=== PATIENT | female | born 1990 | race Caucasian/White ===

== ENCOUNTER → 2021-07-22 11:14 | Outpatient (CLI) | payer OTHER, SELFPAY ==
[2021-07-22 12:14] LABS: Add Manual Diff / Slide Review NO; Basophils Absolute Auto 0 /uL (0-100); Basophils Percent Auto 0.4 % (0-2); Eosinophils Absolute Auto 100 /uL (0-450); Eosinophils Percent Auto 0.9 % (2-4); Lymphocytes Absolute Auto 1600 /uL (1100-4500); Lymphocytes Percent Auto 19.1 % (25-40); Mean Corpuscular HGB Conc 34.1 % (30-36); Mean Corpuscular Hemoglobin 29.3 PG (26-34); Mean Corpuscular Volume 86.1 fL (80-100); Monocytes Absolute Auto 400 /uL (0-900); Neutrophils Absolute Auto 6400 /uL (1500-7000); Neutrophils Percent Auto 74.6 % (50-75); Platelet Count 231 X10^3/uL (150-400); Red Blood Cell Count 4.41 X10^6/uL (4.0-5.2); Red Cell Distribution Width 12.9 % (11.6-14.8); White Blood Cell Count 8.5 X10^3/uL (4.5-11.0)
[2021-07-22 12:18] LABS: Appearance Urine UA CLEAR; Bilirubin Urine UA NEGATIVE (NEGATIVE); Color Urine UA YELLOW; Glucose Urine UA NEGATIVE (Negative); Ketones Urine UA TRACE (NEGATIVE); Leukocyte Esterase Urine UA TRACE (NEGATIVE); Nitrite Urine UA NEGATIVE (Negative); Occult Blood Urine UA TRACE-INTACT (Negative); Protein Urine UA NEGATIVE (Negative); Urobilinogen Urine UA 0.2 E.U./dL (0.2)
[2021-07-22 14:01] LABS: pH Urine UA 6.5 (4.5-8.0)
[2021-07-22 14:03] LABS: Bacteria Urine Few (2-10); RBC Urine 0-1/HPF (0-5/HPF); Squamous Epithelial Cell Urine 10-30 /HPF (0-5/HPF); WBC Urine 1-5/HPF (0-5/HPF)
[2021-07-22 17:06] LABS: Hepatitis B Surface Antigen NEGATIVE s/c (NEGATIVE); Rubella Antibody IgG 83.8 IU/mL (>15)
[2021-07-22 17:20] LABS: HIV 1 & 2 Ab/Ag 4th Gen Combo NEGATIVE (NEGATIVE); Hep C Virus Ab w/Reflex Quant NEGATIVE s/c (NEGATIVE)
[2021-07-23 03:36] LABS: RPR Screen Non Reactive (Non Reactive)
[2021-07-23 08:08] LABS: Varicella IgG Antibody 961 index (Immune >165)
== END ==
PROVIDERS: Referring Provider Family Medicine; Visit Provider Family Medicine
DX: Z34.01 Encounter for supervision of normal first pregnancy, first trimester (principal)
CPT/HCPCS: 36415; 80055; 81003; 81015; 86787; 86803; 86850; 86900; 86901; 87086; 87389

== ENCOUNTER → 2021-07-29 16:57 | Outpatient (CLI) | payer OTHER, SELFPAY ==
[2021-07-29 17:18] LABS: Specimen Label NATERA SEND OUT KIT
== END ==
PROVIDERS: Referring Provider Family Medicine; Visit Provider Family Medicine
DX: Z3A.10 10 weeks gestation of pregnancy (principal)
CPT/HCPCS: 36415

== ENCOUNTER → 2021-08-19 11:53 | Outpatient (CLI) | payer OTHER, SELFPAY | PROVIDERS: Visit Provider Family Medicine | DX: R35.0 Frequency of micturition (principal) | CPT/HCPCS: 87086 ==

== ENCOUNTER → 2021-09-28 14:06 | Outpatient (CLI) | payer OTHER, SELFPAY ==
--- NOTE | 2021-09-28 14:07 | DI.US.S_ITS ---
PROCEDURE: US OB >= 14 WEEKS FETUS INDICATIONS: 20 WEEK ANATOMY SCAN OUTSIDE/PRIOR DATING DATA: Last menstrual period (LMP): 05/09/2022 LMP-based estimated date of delivery (PIYUSH): 02/13/2022. First dating scan (date and location): 09/28/2021. Estimated date of delivery (PIYUSH) from first dating scan: 02/04/2022. The calculations are made using the ultrasound PIYUSH of 02/04/2022. TECHNIQUE: Real-time scanning was performed of the fetus, with image documentation and biometric measurements. COMPARISON: None. FINDINGS: General: A single living intrauterine gestation is present. Presentation: Variable. Placenta: Placental position is posterior , without previa. Amniotic fluid index: 11.2 cm, normal range is 5-24 cm. heart rate: 147 beats per minute. Maternal cervical canal: 4. 6 cm long. Normal lower limit is 2.5 cm. biometrics: Biparietal diameter: 21 weeks 6 days Head circumference: 21 weeks Abdominal circumference: 22 weeks Femur length: 21 weeks 1 day Clinically estimated gestational age: 21 weeks 4 days Composite gestational age from present scan: 433 g Estimated weight and percentile: 97th percentile when compared to last menstrual period. Anatomic survey: Neuro: Ventricles are non-dilated at less than 10 mm. Cisterna magna is normal at 3-11 mm. Cerebellum is normal in size and morphology. Nuchal skin fold: Normal at less than 6 mm between 14-21 weeks gestational age. Face: Nose and lips, facial profile are normal. Spine: No evidence for spina bifida. Heart: 4-chambered heart is present, with normal ventricular outflow tracts. Diaphragm: Diaphragm is intact. Stomach: Left-sided stomach is present. Kidneys: Right kidney not well visualized. Normal left kidney. Cord: 3-vessel cord has orthotopic insertion. Bladder: Normal in size. Extremities: All 4 extremities identified. IMPRESSION: 1. 21 week 4 day single living IUP corresponding to ultrasound PIYUSH of 02/04/2022. 2. The right kidney is not well visualized; otherwise normal anatomic survey. Follow-up recommended. We strive to produce accurate, complete, and clear reports of imaging services. To assist us in improving patient care, this report was composed using standard report templates and voice recognition software. Therefore, it may contain abnormal punctuation, insertions and/or omissions. Occasional wrong-word or sound-alike substitutions may occur. Though we review the report and make efforts to correct it, we do recommend that the report be read carefully in proper context to recognize any text inaccuracies. Dictated by: Marquis FRAZIER Interpreted: Griffin Collins MD on 09/28/2021 at 15:44 Transcribed by: ELFEGO on 09/28/2021 at 15:46 Approved by: Griffin Collins M.D. on 10/09/2021 at 13:05
== END ==
PROVIDERS: Referring Provider Family Medicine; Visit Provider Family Medicine
DX: Z34.92 Encounter for supervision of normal pregnancy, unspecified, second trimester (principal); Z3A.21 21 weeks gestation of pregnancy
CPT/HCPCS: 76811

== ENCOUNTER → 2021-11-06 14:18 | Outpatient (CLI) | payer OTHER, SELFPAY ==
--- NOTE | 2021-11-06 14:19 | DI.US.S_ITS ---
PROCEDURE: US OB LIMITED INDICATIONS: Follow up us 09/28 OUTSIDE/PRIOR DATING DATA: Last menstrual period (LMP): 05/09/2022. LMP-based estimated date of delivery (PIYUSH): 02/13/2022 First dating scan (date and location): 21 weeks 4 days Estimated date of delivery (PIYUSH) from first dating scan: 09/28/2021. The calculations are made using the ultrasound PIYUSH of 02/04/2022. TECHNIQUE: Real-time scanning was performed of the fetus, with image documentation. COMPARISON: None. FINDINGS: A single living intrauterine gestation is present. Presentation: Cephalic. Placenta: Placental position is posterior/right, without previa. Amniotic fluid index: 14.3 cm, normal range is 5-24 cm. heart rate: 143 beats per minute. Maternal cervical canal: 4 cm long. Normal lower limit is 2.5 cm. Estimated gestational age from initial scan: 27 weeks 1 day. Anatomic survey: Neuro: Ventricles are non-dilated at less than 10 mm. Cisterna magna is normal at 3-11 mm. Cerebellum is normal in size and morphology. Kidneys: Right kidney is visualized and normal. IMPRESSION: 1. Single live intrauterine with an estimated gestational age of 27 weeks 1 day from initial scan. 2. Completion of anatomy scan with normal right kidney identified. Dictated by: Adam Barron M.D. on 11/06/2021 at 15:44 Approved by: Adam Barron M.D. on 11/06/2021 at 15:48
== END ==
PROVIDERS: Referring Provider Family Medicine; Visit Provider Family Medicine
DX: Z36.2 Encounter for other antenatal screening follow-up (principal); Z3A.27 27 weeks gestation of pregnancy
CPT/HCPCS: 76815

== ENCOUNTER → 2021-11-13 14:38 | Outpatient (CLI) | payer OTHER, SELFPAY ==
[2021-11-13 16:15] LABS: GTT (PREG) 1 Hour PP 50gm Dose 106 mg/dL (76-139)
== END ==
PROVIDERS: Referring Provider Family Medicine; Visit Provider Family Medicine
DX: Z34.92 Encounter for supervision of normal pregnancy, unspecified, second trimester (principal); Z3A.26 26 weeks gestation of pregnancy
CPT/HCPCS: 36415; 82950

== ENCOUNTER → 2022-01-22 15:01 | Outpatient (CLI) | payer OTHER, SELFPAY ==
[2022-01-23 14:23] LABS: Strep Grp B PCR NEG for Grp B Strep
== END ==
PROVIDERS: Visit Provider Family Medicine
DX: Z34.93 Encounter for supervision of normal pregnancy, unspecified, third trimester (principal); Z3A.36 36 weeks gestation of pregnancy
CPT/HCPCS: 87653

== ENCOUNTER 2022-02-03 18:53 | Inpatient (IN) | payer OTHER, SELFPAY ==
[2022-02-03 19:15] VITALS: BP 120/78
[2022-02-03 20:55] LABS: COVID19 -Nasal RAPID Negative (Negative)
--- NOTE | 2022-02-03 21:15 | PM.OBHP.IH.1 ---
OB HPI Date/Time Date of admission: 02/03/22 Date Patient Seen: 02/04/22 Time Patient Seen: 08:15 History of Present Condition Chief complaint: obs PIYUSH Calculator Estimated Delivery Date Method Current WG Current Estimate 02/13/22 Manual 38w 5d Final PIYUSH - KOBE Other Estimates 02/13/22 LMP (Certain) 38w 5d 02/13/22 Ultrasound #1 38w 5d Estimated Gestational Age (weeks): 38w4d : 1 Para: 0 Narrative: Pt is a 31yo at 38w4d who presented with leaking fluid. The pt reports feeling a gush of fluid around 4:30pm. She started having increasingly uncomfortable contractions shortly after. She has been having intermittent vaginal spotting. She continues to feel her baby move regularly. The pts has been uncomplicated. care: good care, initiated at week # (10) and pounds weight gain (35) Dating criteria OB: LMP confirmed by 1st trimester US Ultrasounds: normal 1st trimester US and normal mid trimester US Obstetrical complications: none Medical complications OB: none Preadmission Labs Last OB Lab Results: Blood Type O Positive 02/03/22 19:55 Antibody Screen Negative 02/03/22 19:55 Hematocrit 35.9 % (36-46) L 02/03/22 19:55 Hemoglobin 12.3 g/dL (12.0-16.0) 02/03/22 19:55 Hepatitis B Surface Antigen Negative s/c (NEGATIVE) 07/22/21 11:46 Hepatitis C Antibody Negative s/c (NEGATIVE) 07/22/21 11:46 Rubella Antibody 83.8 IU/mL (>15) 07/22/21 11:46 Varicella-Zoster IgG Antibody 961 index (Immune >165) 07/22/21 11:46 Glucose 1 Hour 106 mg/dL (76-139) 11/13/21 14:41 Group B Streptococcus (PCR) Neg for grp b strep 01/22/22 15:01 Evaluation Evaluation Baseline heart rate: 135 Variability: Moderate (11-25) monitor accelerations: Present Monitor Decelerations: Absent [facility] Medical History (Updated 01/22/22 @ 17:06 by Lauren Sharma MD) Acne (~2018) Anxiety (~2015) History of painful menstruation (~2000) Inflammatory bowel diseases (IBD) (~2017) Irritable bowel syndrome (~2017) Mass of axillary tail of right breast (~2017) Surgical History (Updated 08/18/21 @ 18:57 by Lucila Granados) Breast cyst (~2018) [place] teeth extracted Family History (Updated 08/18/21 @ 18:58 by Lucila Granados) Mother Cervical incompetence affecting management of mother, antepartum History of cervical cerclage H/O: hysterectomy Hypothyroid Father Myocardial infarction Arrhythmia Heart disease Grandmother No problems noted. Grandfather Heart disease Stroke Grandmother No problems noted. Grandfather Obesity Hyperlipidemia Heart disease Social History marital status: number of children: 0 household members: spouse lives independently: Yes caregiver/support person: No housing: house pets and animals: No education level: master's degree ([employer] occupational status: unemployed current occupational exposures/hazards: No tiffanie/oriental orthodox: Scientologist special tiffanie needs: No seatbelt use: always do you feel safe at home: Yes Smoking Status: Never smoker second hand exposure: No alcohol intake: former (Pre-: very rare, social occasions only, small amounts. ) substance use type: does not use during the past year weight has: remained stable well-balanced diet: daily or most days (95% Plant-based diet, discussed protein goals. ) daily servings fruits/ve-4 caffeine: No Type(s) of exercise: walking (Hiking), bicycling (Spinning bike 2/x week x 1 hour), regular exercise (YouTube videos) and yoga frequency: 3-4 times per week duration: 45-60 minutes/day Meds Home Medications and Allergies Home Medications Medication Instructions Recorded Confirmed Type cholecalciferol (vitamin D3) 25 25 mcg PO DAILY 07/07/21 02/03/22 History mcg (1,000 unit) capsule ferrous sulfate 325 mg (65 mg 325 mg PO DAILY 07/07/21 02/03/22 History iron) tablet (FeroSul) folic acid 400 mcg tablet 0.4 mg PO DAILY 07/07/21 02/03/22 History mecobalamin (vitamin B12) 5,000 See Rx Instructions .Route .COMPLEX 07/07/21 02/03/22 History mcg disintegrating tablet prenat.vits,daisy,stl-rlkb-vyewf 1 tab PO DAILY 07/07/21 02/03/22 History zinc gluconate 50 mg tablet 50 mg PO DAILY 07/07/21 02/03/22 History double electric breast pump and #1 ea 11/13/21 02/03/22 Rx supplies Allergies Allergy/AdvReac Type Severity Reaction Status Date / Time No Known Drug Allergies Allergy Verified 02/03/22 14:31 OB Exam Narrative Exam Narrative: Gen: NAD, sitting comfortably in bed, appears well CV: RRR, no murmurs Resp: clear to auscultation bilaterally Abd: soft, nontender, gravid Ext: no edema Objective Labs Result Diagrams: 02/03/22 19:55 Labs: Laboratory Results - last 24 hr 02/03/22 19:55 SARS-CoV-2 (PCR) Negative Assessment and Plan Assessment and Plan Assessment and Plan narrative: 31yo at 38w4d here with SROM. Uncomplicated . GBS negative, Rh positive. - Expectant management, anticipate - FHT reassuring - Epidural for pain control when desired - GBS negative, no prophylaxis indicated
[2022-02-03 21:19] LABS: Add Manual Diff / Slide Review NO; Basophils Absolute Auto 100 /uL (0-100); Basophils Percent Auto 0.3 % (0-2); Eosinophils Absolute Auto 0 /uL (0-450); Eosinophils Percent Auto 0.1 % (2-4); Hematocrit 35.9 % (36-46); Hemoglobin 12.3 g/dL (12.0-16.0); Lymphocytes Absolute Auto 1600 /uL (1100-4500); Lymphocytes Percent Auto 11.1 % (25-40); Mean Corpuscular HGB Conc 34.4 % (30-36); Mean Corpuscular Hemoglobin 30.8 PG (26-34); Mean Corpuscular Volume 89.6 fL (80-100); Monocytes Absolute Auto 600 /uL (0-900); Monocytes Percent Auto 4.2 % (3-14); Neutrophils Absolute Auto 12500 /uL (1500-7000); Neutrophils Percent Auto 84.3 % (50-75); Platelet Count 153 X10^3/uL (150-400); Red Blood Cell Count 4.01 X10^6/uL (4.0-5.2); Red Cell Distribution Width 13.3 % (11.6-14.8); White Blood Cell Count 14.9 X10^3/uL (4.5-11.0)
[2022-02-04] MEDS: fentaNYL 100 MCG/2 ML INJ 50 MCG IV ×2 (00:33→02:00)
[2022-02-04] MEDS: LACTATED RINGERS 1,000 ML 100 ML IV ×3 (03:30→17:03)
[2022-02-04] MEDS: FENT 2MCG/ML BUPIV 0.125% EPI 200 MCG/100 ML PLAST..BAG 12 MCG EPIDURAL ×2 (04:15→10:51)
[2022-02-04] MEDS: OXYTOCIN PREMIX 30 UNIT/500 ML PLAST..BAG IV (10:45)
--- NOTE | 2022-02-04 11:29 | PM.OBPNLAB ---
Date/Time Date Patient Seen: 02/04/22 Time Patient Seen: 08:20 Pain Control Pain control: epidural Pelvic Exam Dilation (cm): 9 Effacement (%): 100 station: 0 Amniotic membrane status: Ruptured Contractions Contraction frequency (min): 5 Status status: Category l Heart Rate Baseline: 145 Monitor Accelerations: Absent Monitor Decelerations: Absent Monitor Variability: Moderate Assessment and Plan Comments: 31yo at 38w5d here with SROM in active labor. Pt making good progress, now 9cm. No additional intervention at this time. Anticipate . FHT reassuring.
--- NOTE | 2022-02-04 13:51 | PM.PREOP ---
Pre-operative Note COVID-19 COVID-19 status: Negative Result date/Date tested (Pos, Neg/Pending): 02/03/22 Interval Note History & Physical reviewed/Exam performed by Physician: Yes Changes to H&P: No
--- NOTE | 2022-02-04 13:51 | PM.OBPNLAB ---
Date/Time Date Patient Seen: 02/04/22 Time Patient Seen: 13:51 Pain Control Pain control: epidural Pelvic Exam Dilation (cm): 10 Effacement (%): 100 station: +2 Amniotic membrane status: Ruptured Contractions Contraction frequency (min): 3 Status status: Category ll Heart Rate Baseline: 150 Monitor Accelerations: Absent Monitor Decelerations: Late Monitor Variability: Minimal Assessment and Plan Comments: 31yo at 38w5d here with SROM in active labor. Pt progressed to complete, and pushed for over 3 hours. There was initially descent of the fetus, but then limited movement past +1 position. The fetus was in OP position. Pitocin was initiated due to spacing of contractions, and titrated to a maximum of 6mU. The pt was able to bring the fetus to +2 position. Due to maternal exhaustion and nonreassuring FHT with persistent minimal variability, the decision was made to proceed with vacuum-assisted vaginal delivery. Patient was evaluated and noted to have adequate pain control. Patient counseled on risks/benefits/alternatives of vacuum assisted delivery. Risks were discussed and they included but were not limited to a need for an episiotomy, pressure foster on the baby, lacerations to the baby's scalp/face, serious damage including skull fracture, the need to proceed with an abdominal procedure, , paralysis of the baby's arms and/or legs, neurological impairment of the baby. Alternatives would include CS or further observation depending on status. Questions were answered and the patient verbalized an understanding and decided to proceed. Cervix completely dilated and maternal bladder emptied. Maternal pelvis was noted to be adequate. Vertex presentation in the OP position and +2 station. Moulding present, Caput not present Vacuum cup of the Kiwi OmniCup applied to the flexion point without difficulty and during contractions, pressure applied between 400-600 mmHg as indicated in the green zone of the pressure gauge. Initially with vacuum use, there was good descent to +3 position. There were then 2 pop-offs. The vacuum did lose suction multiple times. The fetus was noted to have significant caput forming. There was limited descent. A third pop-off occurred, and due to this with no significant bony descent beyond +3 station the decision was made to proceed with primary . The vacuum was applied for a total of 33 minutes. The risks of were discussed with the patient. Risks include but are not limited to bleeding/hemorrhage, infection, injury to other organs such as the bowel and bladder, and injury to fetus. The pt agreed to blood transfusion if medically necessary. The consent was signed and placed in the chart. She will receive 2g Ancef and 500mg Azithromycin prior to delivery. SCDs will be placed.
[2022-02-04] MEDS: AZITHROMYCIN 500 MG in DEXTROSE 5% IN WATER 250 ML 250 MG IV (14:45)
[2022-02-04] MEDS: CEFAZOLIN 2 GM/100 ML PREMIX 100 ML IV (15:00)
[2022-02-04 15:49] VITALS: BP 130/70; PULSE 81; RESP 16; TEMP 36.2; O2SAT 98
[2022-02-04 15:55] VITALS: BP 130/90; PULSE 90; RESP 16; O2SAT 99
--- NOTE | 2022-02-04 15:58 | P.OP_ITS ---
Operative Date/Time/Diagnoses Date of procedure: 02/04/22 Time of procedure: 14:45 Pre-op diagnosis: 38w5d gestation GBS negative Rh positive Prolonged second stage of labor Failed vacuum-assisted vaginal delivery Failure to descend Nonreassuring heart tones Post-op diagnosis: same Procedure & Clinicians Procedure: Primary Same procedure as scheduled: Yes Indications: Failure to descend, nonreassuring heart tones, failed vacuum-assisted vaginal delivery Surgeon: Lauren Sharma Click Yes if Unassisted: No Missile Control Pilot: Isaura Ly Anesthesia Type: Epidural Operative Notes Findings: Normal uterus, ovaries, and tubes Closure Type: primary Specimen(s): cord blood and cord pH Intraoperative meds administered: Ketorolac and Pitocin Applied: Catheter Estimated Blood Loss (mL): 450 Procedure in detail: The patient was taken to the operating room where epidural was bolused was placed. She was then prepared and draped in the normal sterile fashion in the dorsal supine position with a leftward tilt. Anesthesia was tested and found to be adequate. A Pfannensteil skin incision was then made with the scalpel and carried through to the underlying layer of fascia with the scalpel. The fascia was incised in the midline and the incision extended laterally with the Sommers scissors. The superior aspect of the fascial incision was then grasped with Eliezer clamps, elevated with the help of the personal injury legal assistant, and the underlying rectus muscles dissected off bluntly and sharply where needed. Attention was then turned to the inferior aspect of the incision which, in a similar fashion, was grasped, tented up with Eliezer clamps, and the rectus muscle dissected off bluntly and sharply with Sommers scissors. The rectus muscles were then in the midline, and the peritoneum was identified and entered bluntly. The peritoneal incision was then extended with good visualization of the bladder. Retraction was provided by the personal injury legal assistant. The bladder blade was then inserted and the vesicouterine peritoneum identified, grasped with pick-ups and entered sharply with the Metzenbaum scissors. The incision was then extended laterally and the bladder flap created digitally. The bladder blade was then reinserted and the lower uterine segment incised in a transverse fashion with the scalpel, with the personal injury legal assistant providing suction. The uterine incision was then extended superolaterally by pulling superolaterally on both sides. The bladder blade was removed the infant's head was flexed out of OP position and delivered atraumatically, with fundal pressure by the personal injury legal assistant. The nose and mouth were suctioned with bulb suction and the cord was clamped and cut. Delayed cord clamping was not completed as the baby had no spontaneous respirations. The infant was handed off to the waiting nursing staff. Cord blood was collected for Rh status. Cord gases were sent. The placenta was then delivered with gentle cord traction. The uterus was then exteriorized and cleared of all clots and debris. The uterine incision was repaired with O Vicryl in a running, locked fashion. A small extension was noted and repaired down the right side of the incision. A second layer of the same suture was used to obtain excellent hemostasis. The uterus was returned to the abdomen. The gutters were cleared of all clots. Hysterotomy was investigated and found to be hemostatic. Bladder flap was repaired with 2-O Chromic. The peritoneum was closed with 3-O Vicryl. The fascia was reapproximated with O-Vicryl in a running fashion. The subcutaneous tissue was reapproximated with 3-O Vicryl. The skin was closed with 4-O Vicryl. The personal injury legal assistant helped with retraction during closures. SPONGE AND NEEDLE COUNTS: Correct x3. DRESSING: Aquacel ANTICOAGULATION: SCDs applied prior to Surgery Preop antibiotics given (see MAR). The patient was taken to recovery room having tolerated procedure well. Complications: none [place] Baby 1: Infant Gender: Male Presentation: vertex Position: Right Occiput Posterior Placental Delivery Description: Spontaneous Cord Vessel Description: 3 Vessels and Nuchal Cord score (1 min): 1 (given only for HR) score (5 min): 6 score (10 min): 9 weight: 8 lb 0.468 oz Narrative: without spontaneous respirations after delivery, no tone, pale. HR initially in the 40s. Responded well to PPV followed by CPAP. Post-operative Condition: stable Disposition: PACU Aftercare: routine postop
--- NOTE | 2022-02-04 16:05 | SUR.OPER ---
Viable baby boy born at 1458. Resuscitation needed, successful. Cord blood and placenta given to OB RN.
--- NOTE | 2022-02-04 16:06 | SUR.OPER ---
Supine on Padded OR bed, head on pillow, safety belt at thigh, arms secured on padded arm boards at <90 degrees abduction. Bump under right buttock. Legs uncrossed with pillow under knees, gel pad to heels, tape over blanket to lower legs.
[2022-02-04 16:10] VITALS: BP 136/70; PULSE 80; RESP 16; TEMP 36.8; O2SAT 98
[2022-02-04] MEDS: MORPHINE 2 MG/ML INJ IV (16:49)
[2022-02-04] MEDS: OXYCODONE IR 5 MG TABLET PO (20:38)
[2022-02-04] MEDS: KETOROLAC 30 MG/ML VIAL IV (22:40)
[2022-02-05] MEDS: OXYCODONE IR 5 MG TABLET PO ×3 (00:50→08:17)
[2022-02-05] MEDS: KETOROLAC 30 MG/ML VIAL IV (06:12)
[2022-02-05 06:31] LABS: Add Manual Diff / Slide Review NO; Basophils Absolute Auto 0 /uL (0-100); Basophils Percent Auto 0.2 % (0-2); Eosinophils Absolute Auto 0 /uL (0-450); Eosinophils Percent Auto 0.1 % (2-4); Hematocrit 34.4 % (36-46); Hemoglobin 11.7 g/dL (12.0-16.0); Lymphocytes Absolute Auto 2300 /uL (1100-4500); Mean Corpuscular Hemoglobin 30.6 PG (26-34); Mean Corpuscular Volume 90.2 fL (80-100); Monocytes Absolute Auto 1000 /uL (0-900); Neutrophils Absolute Auto 16000 /uL (1500-7000); Neutrophils Percent Auto 82.7 % (50-75); Platelet Count 136 X10^3/uL (150-400); Red Blood Cell Count 3.81 X10^6/uL (4.0-5.2); Red Cell Distribution Width 13.7 % (11.6-14.8); White Blood Cell Count 19.3 X10^3/uL (4.5-11.0)
--- NOTE | 2022-02-05 08:21 | P.PNOB_ITS ---
Subjective - OB Subjective Patient comments: incisional pain baby status: doing well feeding status: exclusively breast feeding Date Patient Seen: 02/05/22 Time Patient Seen: 08:00 Interval history: Patient is postoperative day 1 primary low-transverse section for sec ond-stage arrest. Patient is having incisional pain but denies headaches, scotomata, epigastric pain. No nausea. Exam Vital Signs (past 8 hours): Blood pressure 122/68, pulse 75, temperature 36.4? Oxygen Delivery Method Room Air Narrative Exam Narrative: Abdomen is soft, nontender. Uterus is firm, at U, appropriately tender. Dressing is clean, dry, intact. Mild lochia. Extremities without edema and nontender. Objective Labs Result Diagrams: 02/05/22 06:25 Labs: Laboratory Results - last 24 hr 02/05/22 06:25 WBC 19.3 H RBC 3.81 L Hgb 11.7 L Hct 34.4 L MCV 90.2 MCH 30.6 MCHC 34.0 RDW 13.7 Plt Count 136 L Neut % (Auto) 82.7 H Lymph % (Auto) 12.0 L Mclennan % (Auto) 5.0 Eos % (Auto) 0.1 L Baso % (Auto) 0.2 Neut # (Auto) 32002 H Lymph # (Auto) 2300 Mclennan # (Auto) 1000 H Eos # (Auto) 0 Baso # (Auto) 0 Assessment & Plan Plan day: 1 plan OB: routine postop care Time Spent With Patient Time: Total time spent is greater than 50% in coordination of care (as documented) at patient's floor/unit and/or counseling patient: Time with patient: less than 15 minutes
[2022-02-05] MEDS: OXYCODONE IR 10 MG TABLET PO ×2 (14:00→20:13)
[2022-02-05] MEDS: IBUPROFEN 600 MG TABLET PO ×2 (15:07→20:14)
--- NOTE | 2022-02-05 15:46 | P.PNOB_ITS ---
Subjective - OB Subjective Patient comments: incisional pain baby status: doing well feeding status: exclusively breast feeding Date Patient Seen: 02/05/22 Time Patient Seen: 08:00 Interval history: Postoperative day 1 section for second-stage arrest. Patient states her pain is under control. is going well. No headaches, scotomata, epigastric pain. Mild bleeding. Exam Vital Signs (past 8 hours): Blood pressure 122/68, pulse 75, temperature 36.4? Oxygen Delivery Method Room Air Narrative Exam Narrative: Patient's abdomen is soft, nontender. Uterus is firm, at U, appropriately tender. Dressing is clean, dry, intact. Mild lochia. Extremities without edema and nontender. Objective Labs Result Diagrams: 02/05/22 06:25 Labs: Laboratory Results - last 24 hr 02/05/22 06:25 WBC 19.3 H RBC 3.81 L Hgb 11.7 L Hct 34.4 L MCV 90.2 MCH 30.6 MCHC 34.0 RDW 13.7 Plt Count 136 L Neut % (Auto) 82.7 H Lymph % (Auto) 12.0 L Harrison % (Auto) 5.0 Eos % (Auto) 0.1 L Baso % (Auto) 0.2 Neut # (Auto) 68581 H Lymph # (Auto) 2300 Harrison # (Auto) 1000 H Eos # (Auto) 0 Baso # (Auto) 0 Assessment & Plan Plan day: 1 plan OB: routine postop care Time Spent With Patient Time: Total time spent is greater than 50% in coordination of care (as documented) at patient's floor/unit and/or counseling patient: Time with patient: less than 15 minutes
[2022-02-06] MEDS: OXYCODONE IR 10 MG TABLET PO (03:18)
[2022-02-06] MEDS: IBUPROFEN 600 MG TABLET PO ×3 (03:18→15:08)
[2022-02-06] MEDS: ACETAMINOPHEN 325 MG TABLET 650 MG PO ×3 (03:19→15:08)
[2022-02-06] MEDS: PRENATAL VIT,CALC/IRON/FOLIC 1 TABLET 1 TAB PO (09:07)
[2022-02-06] MEDS: DOCUSATE 100 MG CAPSULE 200 MG PO (09:08)
--- NOTE | 2022-02-06 10:57 | PM.OBDS.1 ---
Discharge Providers Provider Date of admission: 02/03/22 18:53 Discharge Date: 02/06/22 Primary care physician: Lauren Sharma MD Consults: 02/04/22 16:21 Consult to Sleeping Car Conductor Routine Comment: Discharge provider: Isaura Ly MD Summary Hospital Course Date Patient Seen: 02/06/22 Time Patient Seen: 10:57 Diagnoses: 39 week gestation primary low-transverse section for second-stage arrest Hospital Course: Patient arrived on Labor and delivery in active labor. She was complete and pushing and had a failed vacuum extraction. She underwent a primary low-transverse section. She is urinating and ambulating well. Pain is under control. No headaches, scotomata, epigastric pain. Bleeding is mild. Peripartum Data Delivery Method: Section (Second-stage arrest) Procedures: Primary low-transverse section complications: none 1: Gender: Male Disposition of : home Discharge Diagnosis (1) Delivery by section using transverse incision of lower segment of uterus: Status: Acute Status at Discharge Cognitive/behavioral status at discharge: oriented Functional status at discharge: independent ambulation Overall status at discharge: patient is progressing back to baseline Time Spent with Patient Time attestation: Total time spent providing and/or coordinating discharge services: Time spent: Less than 30 minutes Objective Labs Result Diagrams: 02/05/22 06:25 Exam Vital Signs (past 8 hours): Blood pressure 125/84, pulse 71, temperature 36.3? Oxygen Delivery Method Room Air Narrative Exam Narrative: Abdomen is soft, nontender. Uterus is firm, at U, nontender. Dressing is clean, dry, intact. Mild lochia. Extremities without edema and nontender. Patient is Rh positive, rubella immune, she received Tdap in the 3rd trimester. Discharge Plan Discharge Plan Patient Disposition: Home Discharge orders & Medications Prescriptions: Continued (DME) double electric breast pump and supplies See Rx Instructions .ROUTE .MEDSUPPLY Qty: 1 0RF Rx Instructions: As directed docusate sodium [Dulcolax Stool Softener (dss)] 100 mg capsule 100 mg PO DAILY Qty: 20 0RF ibuprofen 600 mg tablet 600 mg PO Q6H PRN (Reason: pain) Qty: 30 0RF oxycodone 5 mg tablet 5 mg PO Q6H PRN (Reason: pain) Qty: 30 0RF Rx Instructions: May take 2 pills prenat.vits,daisy,[id number]-[id number] Tablet 1 tab PO DAILY zinc gluconate 50 mg tablet 50 mg PO DAILY mecobalamin (vitamin B12) 5,000 mcg tablet,disintegrating See Rx Instructions .ROUTE .COMPLEX Rx Instructions: 1 tablet PO daily cholecalciferol (vitamin D3) 25 mcg (1,000 unit) capsule 25 mcg PO DAILY ferrous sulfate [FeroSul] 325 mg (65 mg iron) tablet 325 mg PO DAILY folic acid 400 mcg tablet 0.4 mg PO DAILY Follow up/Referrals: Lauren Sharma MD [Primary Care Provider] - 02/12/22 1:45 pm Diet/Activity/Treatments Diet: Regular Activity: Nothing in vagina or lifting over 20 lb for 6 weeks Skin/Wound/Dressing Care Report to your healthcare provider any signs of infection, such as:: chills, fever and increased pain Dressing: Leave dressing in place until postop appointment. Discharge Data Primary Care Provider: Lauren Sharma
== END 2022-02-06 16:01 | disposition home or self-care (01) | DRG 788 ==
PROVIDERS: Admitting Provider Obstetrics & Gynecology; PCP Family Medicine; Referring Provider Obstetrics & Gynecology; Visit Provider Obstetrics & Gynecology
PROC: 10D00Z1 Extraction of Products of Conception, Low, Open Approach (ICD-10-PCS; CPT 59514; principal; 2022-02-04 14:30)
DX: O63.1 Prolonged second stage (of labor) (principal); O66.5 Attempted application of vacuum extractor and forceps; O76 Abnormality in fetal heart rate and rhythm complicating labor and delivery; O75.81 Maternal exhaustion complicating labor and delivery; O42.02 Full-term premature rupture of membranes, onset of labor within 24 hours of rupture; Z3A.38 38 weeks gestation of pregnancy; Z37.0 Single live birth; Z20.822 Contact with and (suspected) exposure to COVID-19
CPT/HCPCS: 01967; 01968; 36415; 59050; 59510; 59514; 85025; 86850; 86900; 86901; 87635; C9803; G0379; J0690; J1885; J2270; J2274; J2590; J3010